=== PATIENT | female | born 1945 | race Hispanic/Latino ===

== ENCOUNTER 2022-05-29 08:42 | Emergency (ER) | payer MEDICARE ==
[~2022-05-29] VITALS: Ht 160 cm; Wt 73.0 kg
[2022-05-29 08:49] VITALS: BP 120/71
[2022-05-29 10:32] VITALS: BP 113/51
[2022-05-29 10:40] VITALS: BP 113/51
== END 2022-05-29 10:55 | disposition home or self-care (01) ==
LOC: ED 08:42
DX: T17.928A Food in respiratory tract, part unspecified causing other injury, initial encounter (principal); I10 Essential (primary) hypertension; X58.XXXA Exposure to other specified factors, initial encounter; Z20.822 Contact with and (suspected) exposure to COVID-19